=== PATIENT | male | born 1965 | race Caucasian/White ===

== ENCOUNTER 2017-10-29 10:13 | Emergency (ER) | payer OTHER ==
[~2017-10-29] VITALS: Ht 165.1 cm; Wt 143.2 kg
[2017-10-29] MEDS ORDERED: SODIUM BICARBONATE [ADULT] 8.4% 50 MEQ/50 ML SYRINGE IVP ONE ×2 (10:15)
[2017-10-29] MEDS ORDERED: CALCIUM GLUCONATE 100 MG/ML 10 ML IVP ONE (10:15)
[2017-10-29] MEDS ORDERED: DOPamine HCL/D5W 400 MG/250 ML IV BAG IV ONE (10:15)
[2017-10-29] MEDS ORDERED: AMIODARONE HCL 50 MG/ML 3 ML VIAL IV ONE (10:15)
[2017-10-29] MEDS ORDERED: EPINEPHrine 1:10,000 [1 MG/10 ML] SYRINGE IVP ONE ×2 (10:15)
[2017-10-29] MEDS ORDERED: ATROPINE SULFATE 0.1 MG/ML 10 ML SYRINGE IVP ONE (10:15)
[2017-10-29] MEDS ORDERED: PANT40TA25 PO (10:44)
[2017-10-29] MEDS ORDERED: METO50 PO (10:44)
[2017-10-29] MEDS ORDERED: INSNPH SQ ×2 (10:44)
[2017-10-29] MEDS ORDERED: NITR.4 SL (10:44)
[2017-10-29] MEDS ORDERED: VERA80 PO ×2 (10:44)
[2017-10-29] MEDS ORDERED: OXYC5 PO (10:44)
[2017-10-29] MEDS ORDERED: PRED20 PO (10:44)
[2017-10-29] MEDS ORDERED: DABI150 PO (10:44)
[2017-10-29] MEDS ORDERED: DIGO-44 PO (10:44)
[2017-10-29] MEDS ORDERED: LISI-660 PO (10:44)
[2017-10-29] MEDS ORDERED: ATOR40TA28 PO (10:44)
[2017-10-29] MEDS ORDERED: MIRALAX PO (10:44)
[2017-10-29] MEDS ORDERED: PRAS10TA6 PO (10:44)
[2017-10-29] MEDS ORDERED: SODIUM CHLORIDE 0.9% 3,000 ML IV ONE (10:47)
[2017-10-29 11:01] LABS: APPEARANCE,URINE CLOUDY (CLEAR); BILIRUBIN,URINE NEGATIVE (NEGATIVE); GLUCOSE, URINE (UA) NEGATIVE (NEGATIVE); KETONES,URINE NEGATIVE (NEGATIVE); LEUKOCYTE ESTERASE ,URINE SMALL (NEGATIVE); NITRATE,URINE NEGATIVE (NEGATIVE); OCCULT BLOOD,URINE LARGE (NEGATIVE); PH,URINE 5.5 (5.0-8.0); PROTEIN,URINE POS 1+ (NEGATIVE); UROBILINOGEN,URINE 0.2 mg/dL (<=1.0)
[2017-10-29 11:03] LABS: BASOPHILS % (AUTO) 0.3 % (0.0-2.0); EOSINOPHILS % (AUTO) 0 % (1.0-6.0); HEMATOCRIT 34.7 % (41-53); HEMOGLOBIN 11.4 g/dL (13.5-17.5); LYMPHOCYTES % (AUTO) 3.4 % (22.0-44.0); MEAN CORPUSCULAR HEMOGLOBIN 27.1 pg (26.0-34.0); MEAN CORPUSCULAR HGB CONC 32.9 G/dL (31.0-37.0); MEAN CORPUSCULAR VOLUME 82 fL (80-100); MONOCYTES # (AUTO) 1.7 K/uL (0.1-1.0); MONOCYTES % (AUTO) 5.9 % (2.0-9.0); NEUTROPHILS # (AUTO) 25.5 K/uL (1.8-7.7); PLATELET COUNT (AUTO) 233 K/uL (150-450); RED BLOOD CELL COUNT(AUTO) 4.22 MIL/uL (4.50-5.90)
[2017-10-29 11:07] LABS: NEUTROPHILS % (AUTO) 90.4 % (40.0-70.0)
[2017-10-29 11:11] LABS: BACTERIA,URINE Few /HPF (None Seen); SQUAMOUS EPITHELIAL CELL,UR Few /LPF (None Seen)
[2017-10-29 11:11] LABS: ANION GAP 13 mmol/L (8-16); CALCIUM, TOTAL 8.1 mg/dL (8.8-10.5); CARBON DIOXIDE 19 mmol/L (22-29); CHLORIDE 100 mmol/L (98-107); CREATININE 2.26 mg/dL (0.60-1.30); GLOMERULAR FILTR. RATE CALC 30 mL/min (>60); GLUCOSE,RANDOM 123 mg/dL (70-110); POTASSIUM 4.3 mmol/L (3.5-5.1); SODIUM SERUM 132 mmol/L (136-145); UREA NITROGEN, BLOOD 41 mg/dL (7-18)
[2017-10-29 11:12] LABS: AMORPHOUS SEDIMENT,UR Few /LPF (None Seen)
[2017-10-29 11:18] LABS: ALANINE AMINOTRANSFERASE 33 U/L (12-78); ALBUMIN 2.6 g/dL (3.4-5.0); ALKALINE PHOSPHATASE 103 U/L (46-116); ASPARTATE AMINOTRANSFERASE 15 U/L (15-37); B-TYPE NATRIURETIC PEPTIDE 1460 pg/mL (0-100); BILIRUBIN,TOTAL 0.9 mg/dL (0.1-1.0); TOTAL PROTEIN, SERUM 6.2 g/dL (6.4-8.2)
[2017-10-29] MEDS ORDERED: SODIUM CHLORIDE 0.9% 1,000 ML IV ONE (11:30)
[2017-10-29] MEDS ORDERED: AZITHROMYCIN 500 MG/NS 250 ML IV ONE (11:30)
[2017-10-29] MEDS ORDERED: CefTRIAXone SODIUM 1 GM in DEXTROSE 5%-WATER 10 ML IV ONE (11:30)
[2017-10-29] MEDS ORDERED: ACETAMINOPHEN 1000 MG/ISO-OSM 100 ML IV ONE (11:30)
[2017-10-29 12:18] VITALS: BP 76/50
[2017-10-29] MEDS ORDERED: NOREPINEPHRINE 4 MG/D5%-WATER 250 ML IV ONE (12:18)
[2017-10-29] MEDS ORDERED: NOREPINEPHRINE 4 MG/D5%-WATER 250 ML IV PRN (12:45)
[2017-10-29] MEDS ORDERED: PHENYLEPHRINE 200 MG/D5%-WATER 250 ML IV PRN (12:45)
[2017-10-29 13:36] LABS: LACTIC ACID 6.9 mmol/L (0.4-2.0)
== END 2017-10-29 16:14 | disposition expired ==
LOC: EMS 10:14
DX: A41.9 Sepsis, unspecified organism (principal); J96.90 Respiratory failure, unspecified, unspecified whether with hypoxia or hypercapnia; M86.172 Other acute osteomyelitis, left ankle and foot; N18.9 Chronic kidney disease, unspecified; I48.91 Unspecified atrial fibrillation; J81.1 Chronic pulmonary edema; Z89.512 Acquired absence of left leg below knee; Z89.511 Acquired absence of right leg below knee; Z79.899 Other long term (current) drug therapy; Z79.4 Long term (current) use of insulin; Z83.3 Family history of diabetes mellitus
CPT/HCPCS: 31500; 36415; 71045; 80053; 81001; 83605; 83880; 84484; 85025; 87040; 87205; 92950; 93005; 94660; 96360; 96365; 96367; 96368; 96375; 99291; J0131; J0171; J0282; J0456; J0461; J0610; J0696; J1265; J2370; J3490 ×2; J7030; J7060